=== PATIENT | male | born 1950 | race Two or more races ===

== ENCOUNTER 2019-04-04 10:00 | Emergency (ER) | payer SELFPAY ==
[~2019-04-04] VITALS: Ht 177.8 cm; Wt 93.0 kg
--- NOTE | 2019-04-04 10:05 | NUR ---
JAYASEIRAIDA C/O LOWER BACK PAIN X2 HOURS. -HEAVY LIFTING, -FALL, -TRAUMA, LIMP IN GAIT , TO ER BED 9, HOOKED TO MONITOR, CHANGED TO GOWN, PROVIDED W WARM BLANKET, AWAITING MD HARRY.
--- NOTE | 2019-04-04 10:20 | NUR ---
DR RUSSELL AT BEDSIDE
[2019-04-04] MEDS ORDERED: HYDROMORPHONE INJ 2 MG/ML DISP.SYRIN IM ONE (10:30)
[2019-04-04] MEDS ORDERED: ONDANSETRON 4 MG TAB.RAPDIS PO ONE (10:30)
[2019-04-04] MEDS ORDERED: predniSONE 20 MG TABLET PO ONE (10:30)
[2019-04-04] MEDS ORDERED: HYDROMORPHONE 1 MG/1 ML DISP.SYRIN ONE (10:31)
[2019-04-04] MEDS ORDERED: predniSONE 20 MG TABLET ONE (10:31)
[2019-04-04] MEDS ORDERED: ONDANSETRON 4 MG TAB.RAPDIS ONE (10:31)
[2019-04-04] MEDS ORDERED: oxyCODONE/APAP (5/325 MG) 1 UDTAB TABLET ONE (10:48)
[2019-04-04] MEDS ORDERED: oxyCODONE/APAP (5/325 MG) 1 UDTAB TABLET PO ONE (11:00)
[2019-04-04] MEDS ORDERED: KETOROLAC TROMETHAMINE INJ 30 MG/ML VIAL ONE (11:18)
[2019-04-04] MEDS ORDERED: KETOROLAC TROMETHAMINE INJ 60 MG/2 ML VIAL IM ONE (11:30)
[2019-04-04] MEDS ORDERED: IBUPROFEN 400 MG TABLET ONE (11:40)
--- NOTE | 2019-04-04 12:05 | NUR ---
Patient discharged to home in stable condition. Written and verbal after care instructions given. Patient verbalizes understanding of instruction.
[2019-04-04 12:06] VITALS: BP 148/60
[2019-04-04] MEDS ORDERED: IBUPROFEN 400 MG TABLET PO ONE (12:30)
== END 2019-04-04 12:07 | disposition home or self-care (01) ==
LOC: ER 10:00
DX: M54.5 Low back pain (principal); I10 Essential (primary) hypertension; Z96.643 Presence of artificial hip joint, bilateral; Z85.528 Personal history of other malignant neoplasm of kidney; Z91.040 Latex allergy status; Z88.8 Allergy status to other drugs, medicaments and biological substances
CPT/HCPCS: 99283; Q0162; J1170; J1885